=== PATIENT | female | born 1960 ===

== ENCOUNTER 2016-10-21 09:00 | Inpatient (IN) | payer OTHER ==
[~2016-10-21] VITALS: Ht 149.9 cm; Wt 59.0 kg
[2017-08-25] MEDS ORDERED: ANASTROZOLE1 MG (14:51)
[2017-08-25] MEDS ORDERED: VIT B12 (14:51)
[2017-08-25] MEDS ORDERED: MULTIVITAMINS1 EAC9 (14:51)
[2017-08-25] MEDS ORDERED: VIT D (14:52)
== END 2017-08-27 13:28 | DRG 621 ==
LOC: ADM 09:00 → SURH 08-26 09:00 → CIR.AMB 08-26 09:00 → EDSTATUS 08-26 09:00 → O/R 08-26 09:45 → SURG-SUITE 08-26 18:45 → CIR.AMB 08-29 09:00
PROVIDERS: Plastic Surgery
PROC: 0J080ZZ Alteration of Abdomen Subcutaneous Tissue and Fascia, Open Approach (ICD-10-PCS; principal; 2017-08-26 07:00)
DX: E65 Localized adiposity (principal)